=== PATIENT | male | born 2000 | race Caucasian/White ===

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

== ENCOUNTER 2020-06-11 19:27 | Emergency (ER) | payer OTHER ==
[~2020-06-11] VITALS: Ht 177.8 cm; Wt 80.3 kg
[2020-06-11 19:37] VITALS: BP 136/63; Ht 177.8 cm; Wt 80.3 kg
== END 2020-06-11 20:15 | disposition home or self-care (01) ==
LOC: ED 19:27
DX: U07.1 COVID-19 (principal)
CPT/HCPCS: U0003